=== PATIENT | male | born 1955 | race Caucasian/White ===

== ENCOUNTER 2017-09-25 13:38 | Emergency (ER) | payer OTHER ==
[~2017-09-25] VITALS: Ht 182.9 cm; Wt 90.0 kg
[~2017-09-25 13:38] MED LIST: LORT5TAB PO; PHEN12.5 PO; Z.0.NO CURRENT MEDS
[2017-09-25 13:42] VITALS: BP 138/103; PULSE 16; PULSE 80; RESP 18; TEMP 97.7; O2SAT 97
[2017-09-25 14:45] VITALS: RESP 18; O2SAT 98
--- NOTE | 2017-09-25 15:07 | RADRPT ---
EXAM DATE/TIME: 09/25/2017 14:42 [place] COMPARISON: No previous studies available for comparison. INDICATIONS : Irregular heart rate today MEDICAL HISTORY : None. SURGICAL HISTORY : None. ENCOUNTER: Initial ACUITY: 1 day PAIN SCORE: 0/10 LOCATION: Bilateral chest FINDINGS: A single view of the chest demonstrates the lungs to be symmetrically aerated without evidence of mas s, infiltrate or effusion. The cardiomediastinal contours are unremarkable. Osseous structures are intact. CONCLUSION: 1. No acute cardiopulmonary disease. Yakov Piedra MD on September 25, 2017 at 15:05 Board Certified Radiologist. This report was verified electronically.
[2017-09-25 15:11] LABS: AUTOMATED NEUTROPHIL # 2.1 TH/MM3 (1.8-7.7); BASOPHIL # 0.1 TH/MM3 (0-0.2); BASOPHIL % 1.1 % (0.0-2.0); EOSINOPHIL # 0.1 TH/MM3 (0-0.4); EOSINOPHIL % 3.1 % (0.0-4.0); HEMATOCRIT 39.2 % (39.0-51.0); HEMOGLOBIN 14.2 GM/DL (13.0-17.0); LYMPH % 34.6 % (9.0-44.0); LYMPHOCYTE # 1.6 TH/MM3 (1.0-4.8); MEAN CELL VOLUME 83.3 FL (80.0-100.0); MEAN CORPUSCULAR HEMOGLOBIN 30.1 PG (27.0-34.0); MEAN PLATELET VOLUME 7.5 FL (7.0-11.0); MONO % 13.7 % (0.0-8.0); MONOCYTE # 0.6 TH/MM3 (0-0.9); NEUT % 47.5 % (16.0-70.0); PLATELET COUNT 260 TH/MM3 (150-450); RED BLOOD COUNT 4.71 MIL/MM3 (4.50-5.90); RED CELL DISTRIBUTION WIDTH 12.9 % (11.6-17.2); WHITE BLOOD COUNT 4.5 TH/MM3 (4.0-11.0)
[2017-09-25 15:18] LABS: MEAN CORPUSCULAR HGB CONC 36.2 % (32.0-36.0)
[2017-09-25 15:27] LABS: BICARBONATE 25.9 MEQ/L (21.0-32.0); BLOOD UREA NITROGEN 19 MG/DL (7-18); CALCIUM 9.1 MG/DL (8.5-10.1); CHLORIDE 104 MEQ/L (98-107); CREATININE 1.07 MG/DL (0.60-1.30); GLOMERULAR FILTRATION RATE 70 ML/MIN (>89); GLUCOSE,RANDOM 92 MG/DL (74-106); SODIUM (NA) 137 MEQ/L (136-145); TROPONIN I LESS THAN 0.02 NG/ML (0.02-0.05)
--- NOTE | 2017-09-25 15:46 | PD ---
HPI Chief Complaint: Chest Pain Time Seen by Provider: 14:35 Travel History International Travel<30 days: No Contact w/Intl Traveler<30days: No Traveled to known affect area: No History of Present Illness HPI 62-year-old male describes a racing heart and palpitations today. He denies chest pain. He denies shortness of breath. He reports an echocardiogram in stress test was performed about 2 years prior with normal results. Normal results. 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 He denies smoking and drug use. No family history coronary artery disease. Hyperlipidemia is reported. Diabetes and hypertension are denied. Patient reports palpation of his pulse revealed an irregular rhythm. 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) Social History Alcohol Use: Yes (1 BEER/ DAY) Tobacco Use: No Substance Use: No Allergies-Medications (Allergen,Severity, Reaction): Coded Allergies: Pork/Porcine Containing Products (Unverified Allergy, Severe, upset stomach, 09/25/17) peanut (Unverified Allergy, Severe, THROAT CLOSES, 09/25/17) Uncoded Allergies: NUTS (Allergy, Severe, THROAT CLOSES, 11/25/06) Reported Meds & Prescriptions Reported Meds & Active Scripts Active No Active Prescriptions or Reported Medications Review of Systems Except as stated in HPI: all other systems reviewed are Neg General / Constitutional: No: Fever Physical Exam Narrative GENERAL: 62-year-old male pleasant well-nourished well-developed Vital Signs Date Time Temp Pulse Resp B/P (MAP) Pulse Ox O2 Delivery O2 Flow Rate FiO2 09/25/17 14:45 98 Room Air 09/25/17 14:45 18 98 Room Air 09/25/17 14:08 80 17 Room Air 09/25/17 13:42 97.7 80 18 138/103 (115) 97 SKIN: Warm and dry. HEAD: Atraumatic. Normocephalic. EYES: Pupils equal and round. No scleral icterus. No injection or drainage. ENT: No nasal bleeding or discharge. Mucous membranes pink and moist. NECK: Trachea midline. No JVD. CARDIOVASCULAR: Regular rate and rhythm. RESPIRATORY: No accessory muscle use. Clear to auscultation. Breath sounds equal bilaterally. GASTROINTESTINAL: Abdomen soft, non-tender, nondistended. Hepatic and splenic margins not palpable. MUSCULOSKELETAL: Extremities without clubbing, cyanosis, or edema. No obvious deformities. NEUROLOGICAL: Awake and alert. No obvious cranial nerve deficits. Motor grossly within normal limits. Five out of 5 muscle strength in the arms and legs. Normal speech. PSYCHIATRIC: Appropriate mood and affect; insight and judgment normal. Data Data Last Documented VS Vital Signs Date Time Temp Pulse Resp B/P (MAP) Pulse Ox O2 Delivery O2 Flow Rate FiO2 09/25/17 14:45 98 Room Air 09/25/17 14:45 18 09/25/17 14:08 80 09/25/17 13:42 97.7 Orders Orders Electrocardiogram (09/25/17 ) Complete Blood Count With Diff (09/25/17 14:27) Basic Metabolic Panel (Bmp) (09/25/17 14:27) Ckmb (Isoenzyme) Profile (09/25/17 14:27) Troponin I (09/25/17 14:27) Chest, Single Ap (09/25/17 14:27) Iv Access Insert/Monitor (09/25/17 14:27) Ecg Monitoring (09/25/17 14:27) Oxygen Administration (09/25/17 14:27) Oximetry (09/25/17 14:27) CKMB (09/25/17 14:39) CKMB% (09/25/17 14:39) Ed Discharge Order (09/25/17 16:01) Labs Laboratory Tests Test 09/25/17 14:39 White Blood Count 4.5 TH/MM3 Red Blood Count 4.71 MIL/MM3 Hemoglobin 14.2 GM/DL Hematocrit 39.2 % Mean Corpuscular Volume 83.3 FL Mean Corpuscular Hemoglobin 30.1 PG Mean Corpuscular Hemoglobin Concent 36.2 % Red Cell Distribution Width 12.9 % Platelet Count 260 TH/MM3 Mean Platelet Volume 7.5 FL Neutrophils (%) (Auto) 47.5 % Lymphocytes (%) (Auto) 34.6 % Monocytes (%) (Auto) 13.7 % Eosinophils (%) (Auto) 3.1 % Basophils (%) (Auto) 1.1 % Neutrophils # (Auto) 2.1 TH/MM3 Lymphocytes # (Auto) 1.6 TH/MM3 Monocytes # (Auto) 0.6 TH/MM3 Eosinophils # (Auto) 0.1 TH/MM3 Basophils # (Auto) 0.1 TH/MM3 CBC Comment AUTO DIFF Differential Comment AUTO DIFF CONFIRMED Blood Urea Nitrogen 19 MG/DL Creatinine 1.07 MG/DL Random Glucose 92 MG/DL Calcium Level 9.1 MG/DL Sodium Level 137 MEQ/L Potassium Level 4.0 MEQ/L Chloride Level 104 MEQ/L Carbon Dioxide Level 25.9 MEQ/L Anion Gap 7 MEQ/L Estimat Glomerular Filtration Rate 70 ML/MIN Total Creatine Kinase 166 U/L Creatine Kinase MB 3.0 NG/ML Troponin I LESS THAN 0.02 NG/ML MDM Medical Decision Making Medical Screen Exam Complete: Yes Emergency Medical Condition: Yes Medical Record Reviewed: Yes Differential Diagnosis NSTEMI, unstable angina, coronary vasospasm, PE, PTX, aortic dissection, pericarditis, myocarditis, endocarditis, PNA, esophageal disease, aneurysm, musculoskeletal etiologies, anxiety, cocaine/sympathomimetic abuse Narrative Course CBC & BMP Diagram 09/25/17 14:39 Calcium Level 9.1 Troponin less than 0.02 EKG shows normal sinus rhythm without preexcitation ischemia or arrhythmia Etiology unclear. Potentially patient may have PVCs. With normal stress test and echo from 2 years ago and good follow-up, discharge is considered reasonable. He might need repeat coronary evaluation another consideration is a Holter monitor. Patient has good follow-up with Dr. Florence and states he will call Dr Florence on Wednesday. Diagnosis Primary Impression: Heart palpitations Additional Impression: Racing heart beat Referrals: Angelique Wilhelm Jr., MD 2 days Med/Other Pt SpecificInfo: No Change to Meds Scripts No Active Prescriptions or Reported Meds Disposition: DISCHARGE HOME Condition: Stable Omi España MD Sep 25, 2017 15:46
--- NOTE | 2017-09-26 15:21 | EKG ---
Date Performed: 09/25/2017 Time Performed: 14:10:54 PTAGE: 62 years EKG: Sinus rhythm Since previous tracing, no significant change noted NORMAL ECG PREVIOUS TRACING : 10/25/2006 14.44 DOCTOR: Ángel Sosa Interpretating Date/Time 09/26/2017 15:20:27
== END 2017-09-25 16:34 | disposition home or self-care (01) ==
LOC: NEPC 13:38
DX: R00.2 Palpitations (principal); R00.0 Tachycardia, unspecified; E78.5 Hyperlipidemia, unspecified; M19.90 Unspecified osteoarthritis, unspecified site
CPT/HCPCS: 71045; 80048; 82550; 82552; 84484; 85025; 93005